=== PATIENT | male | born 1940 | race Caucasian/White ===

== ENCOUNTER → 2017-05-22 | Outpatient (CLI) | payer OTHER | LOC: FIMAGING 09:52 | DX: M48.061 Spinal stenosis, lumbar region without neurogenic claudication (principal); M99.73 Connective tissue and disc stenosis of intervertebral foramina of lumbar region ==

== ENCOUNTER 2017-12-16 05:22 | Observation (INO) | payer OTHER ==
[2017-12-16] MEDS ORDERED: GABAPENTIN 300 MG CAP PO ONE (05:53)
[2017-12-16] MEDS ORDERED: ACETAMINOPHEN 500 MG TAB PO ONE (05:53)
[2017-12-16] MEDS ORDERED: ceFAZolin 2 GM/DEXTROSE 100 ML IV ONE (05:53)
[2017-12-16] MEDS ORDERED: LR 1,000 ML IV ONE (05:56)
[2017-12-16] MEDS ORDERED: CHLORHEXIDINE GLUC HIBICLENS 118 ML BTL TP ONE (06:37)
[2017-12-16] MEDS ORDERED: THROMBIN (BOVINE) 20,000 UNIT VIAL TP ONE (06:37)
[2017-12-16] MEDS ORDERED: BACITRACIN ZINC 14.2 GM OINTTUBE TP ONE (06:37)
[2017-12-16] MEDS ORDERED: AVITENE POWDER 1 GM JAR TP ONE (06:38)
[2017-12-16] MEDS ORDERED: BACITRACIN 50,000 UNITS/10 ML SYR IRR ONE ×2 (06:38→08:55)
[2017-12-16] MEDS ORDERED: BUPIVACAINE 0.25% 30 ML SDV ONE (06:38)
[2017-12-16] MEDS ORDERED: EPINEPHrine 1 MG/ML INJ ONE (06:38)
--- NOTE | 2017-12-16 06:40 | PDHPUP ---
History & Physical Update H&P update statement: This history and physical update is based on an assessment of the patient which was completed after admission or registration (within 24 hours), but prior to the surgery/procedure. H&P update: H&P reviewed & patient examined, no change in patient's condition since H&P completed (Consents signed and site marked. All questions answered.)
--- NOTE | 2017-12-16 07:05 | PDANEPAE ---
ANE Past Medical History - Cardiovascular History Hx Hypertension: Yes Hx Arrhythmias: No Hx Chest Pain: No Hx Coronary Artery / Peripheral Vascular Disease: No Hx CHF / Valvular Disease: No Hx Palpitations: No Cardiovascular History Comment: hyperlipidemia - Pulmonary History Hx COPD: No Hx Asthma/Reactive Airway Disease: No Hx Recent Upper Respiratory Infection: No Hx Oxygen in Use at Home: No Hx Sleep Apnea: No Sleep Apnea Screening Result - Last Documented: Positive Pulmonary History Comment: dayami triggers - Neurologic History Hx Cerebrovascular Accident: No Hx Seizures: No Hx Dementia: No Neurologic History Comment: spinal stenosis. occ n/t in legs and feet - Endocrine History Hx Diabetes: Yes Obesity: mild Endocrine History Comment: type 2 - Renal History Hx Renal Disorders: Yes Renal History Comment: bph. ed - Liver History Hx Hepatic Disorders: No - Neurological & Psychiatric Hx Hx Neurological and Psychiatric Disorders: No - Cancer History Hx Cancer: Yes Cancer History Comment: colon ca. skin ca - Congenital Disorder History Hx Congenital Disorders: No - GI History Hx Gastrointestinal Disorders: Yes Gastrointestinal History Comment: hx of colon ca with resection. occ reflux - Other Health History Other Health History: wears glasses - Chronic Pain History Chronic Pain: Yes (lower back) - Surgical History Prior Surgeries: colon resection 2002. steroid injections 08/2015 and 03/2016 ANE Review of Systems Review of Systems: - Exercise capacity METS (RN): 4 METS ANE Patient History - Allergies Allergies/Adverse Reactions: adhesive Allergy (Verified 12/16/17 06:10) latex Allergy (Verified 12/06/17 10:48) causes rash - Home Medications Home medications: home medication list seen and reviewed Home Medications: Insulin Detemir [Levemir] 20 unit SQ HS 03/12/13 [Last Taken 12/15/17 22:30] glipiZIDE XL [Glucotrol XL 10 MG (*)] 10 mg PO DAILY@12 03/12/13 [Last Taken 09:00] Acetaminophen [Tylenol ES 500 mg (*)] 500 mg PO HS 12/02/17 [Last Taken 12/15/17 ] Atorvastatin Calcium [Lipitor 10 mg (*)] 10 mg PO DAILY18 12/02/17 [Last Taken 12/15/17 17:00] Insulin Aspart [novoLOG] 10 - 15 unit SC TIDMEAL 12/02/17 [Last Taken 12/15/17 17:00] Lisinopril [Zestril 20 mg (*)] 20 mg PO DAILY 12/02/17 [Last Taken 12/15/17 09: 00] - NPO status NPO Status: no food or drink >8 hours NPO Since - Liquids (Date): 12/15/17 NPO Since - Liquids (Time): 19:00 NPO Since - Solids (Date): 12/15/17 NPO Since - Solids (Time): 17:00 - Anes Hx Anes Hx: no prior problems - Smoking Hx Smoking Status: Former smoker - Family Anes Hx Family Hx Anesthesia Complications: none ANE Labs/Vital Signs - Vital Signs Blood Pressure: 118/69 Heart Rate: 49 Respiratory Rate: 16 O2 Sat (%): 94 Height: 180.4 cm Weight: 95.9 kg ANE Physical Exam - Airway Neck exam: FROM Mallampati Score: Class 2 Mouth exam: normal dental/mouth exam - Pulmonary Pulmonary: no respiratory distress, no rales or rhonchi, clear to auscultation - Cardiovascular Cardiovascular: regular rate and rhythym, no murmur, rub, or gallop - ASA Status ASA Status: II ANE Anesthesia Plan Anesthesia Plan: general endotracheal anesthesia
[2017-12-16] MEDS ORDERED: PROPOFOL 200 MG/20 ML VIAL ONE (07:13)
[2017-12-16] MEDS ORDERED: ONDANSETRON 4 MG/2 ML VIAL ONE (07:17)
[2017-12-16] MEDS ORDERED: LIDOCAINE 2% 5 ML SDV ONE (07:17)
[2017-12-16] MEDS ORDERED: SUCCINYLCHOLINE CHLORIDE 200 MG/10 ML SYR IVP ONE (07:17)
[2017-12-16] MEDS ORDERED: ROCURONIUM 50 MG/5 ML VIAL ONE (07:40)
[2017-12-16] MEDS ORDERED: ePHEDrine SULFATE 25 MG/5 ML SYR ONE (08:28)
[2017-12-16] MEDS ORDERED: DIAZEPAM 5 MG/ML 1 ML SYR IVP PRN (09:19)
[2017-12-16] MEDS ORDERED: PROMETHAZINE HCL 25 MG/ML INJ IVP PRN (09:19)
[2017-12-16] MEDS ORDERED: ACETAMINOPHEN 500 MG TAB PO PRN (09:19)
[2017-12-16] MEDS ORDERED: NALOXONE HCL 0.4 MG/ML INJ IVP PRN ×2 (09:19→09:21)
[2017-12-16] MEDS ORDERED: ENALAPRILAT DIHYDRATE 1.25 MG/ML VIAL IVP PRN (09:19)
[2017-12-16] MEDS ORDERED: ONDANSETRON 4 MG/2 ML VIAL IVP PRN ×2 (09:19→09:45)
[2017-12-16] MEDS ORDERED: HYDROCODONE/APAP 5/325 TAB PO PRN (09:19)
[2017-12-16] MEDS ORDERED: oxyCODONE IR 5 MG TAB PO PRN ×2 (09:19→09:45)
[2017-12-16] MEDS ORDERED: LR 500 ML IV PRN (09:19)
[2017-12-16] MEDS ORDERED: ONDANSETRON DISINTEGRATING 4 MG TAB PO PRN (09:45)
[2017-12-16] MEDS ORDERED: MAGNESIUM HYDROXIDE 30 ML UDCUP PO PRN (09:45)
[2017-12-16] MEDS ORDERED: diphenhydrAMINE 25 MG CAP PO PRN (09:45)
[2017-12-16] MEDS ORDERED: NS 1,000 ML IV SCH (09:45)
[2017-12-16] MEDS ORDERED: LACTULOSE 20 GM/30 ML UDCUP PO PRN (09:45)
[2017-12-16] MEDS ORDERED: BISACODYL 10 MG SUPP PR PRN (09:45)
[2017-12-16] MEDS ORDERED: POLYETHYLENE GLYCOL 3350 17 GM PKT PO PRN (09:45)
[2017-12-16] MEDS ORDERED: HYDROmorphONE/DILAUDID 1 MG/ML INJ IVP PRN (09:45)
[2017-12-16] MEDS ORDERED: METHOCARBAMOL 750 MG TAB PO PRN (09:45)
[2017-12-16] MEDS ORDERED: D50W 25 GM/50 ML SYR IVP PRN (09:50)
--- NOTE | 2017-12-16 09:52 | POSTOPPROG ---
Post Op Note Date of Operation: 12/16/17 Surgeon: Denia Marc Head Athletic Trainer/Strength Coach: Fabien Marc PA-C Anesthesiologist: Sydney Anesthesia: GET(General Endotracheal) Pre-op Diagnosis: lumbar stenosis Post-op Diagnosis: same Indication: pain, weakness Procedure: L3-5 laminectomy and discectomy Findings: nerve compression Inf/Abcess present in the surg proc area at time of surgery?: No Depth: Organ Space EBL: 50-100 Complications: none Drains: Leighton Nuñez Specimen(s): none PA Addendum - Addendum .: S: Pt awake in PACU, c/o phlegm in throat and mild back pain O: AAOx3 NAD VSS MAEx4 Motor 5/5 BUE & BLE +LT Incision dressed cdi JPx1 A: 77 yo M s/p L3-5 laminectomy and discectomy P: Pain management PT/OT Cont home insulin, add low dose sliding scale Spine precautions TEDs, SCDs, lovenox POD#1 Admit overnight for obs D/w Dr Bynum Call NS with any issues
[2017-12-16] MEDS ORDERED: fentaNYL 100 MCG/2 ML INJ ONE (09:56)
[2017-12-16] MEDS: fentaNYL 100 MCG/2 ML INJ IVP PRN ×3 (09:57→10:16)
[2017-12-16] MEDS ORDERED: HYDROmorphONE/DILAUDID 1 MG/ML INJ ONE (10:36)
[2017-12-16] MEDS ORDERED: INSULIN REGULAR HUMAN 100 UNIT/ML UNIT SC SCH (11:30)
[2017-12-16] MEDS ORDERED: INSULIN LISPRO 100 UNIT/ML SC SCH (12:00)
--- NOTE | 2017-12-16 12:18 | GOP ---
[f rep st] OPERATIVE REPORT DATE OF OPERATION: 12/16/2017 SURGEON: Андрей Bynum MD MILLER HELPER: Denia Marc, CHRYSTAL. ANESTHESIA: General. PREOPERATIVE DIAGNOSIS: 1. L3-L4 and L4-L5 severe spinal stenosis with disk herniation/bulge L4-L5. 2. Lower extremity claudication with low back pain. 3. Treatment refractory to nonoperative intervention. POSTOPERATIVE DIAGNOSIS: 1. L3-L4 and L4-L5 severe spinal stenosis with disk herniation/bulge L4-L5. 2. Lower extremity claudication with low back pain. 3. Treatment refractory to nonoperative intervention. PROCEDURE PERFORMED: 1. Decompressive laminectomy with bilateral medial facetectomies and foraminotomies at L3-L4 and L4-L5. 2. Left-sided L4-L5 diskectomy. 3. Use of intraoperative fluoroscopy, less than 1 hour physician time. 4. Use of neuromonitoring. 5. Use of operative microscope. FINDINGS: per imaging SPECIMENS: None. ESTIMATED BLOOD LOSS: 100 mL. INDICATIONS: The patient is a 77-year-old gentleman who has been suffering from lower extremity claudication and radiculopathy. He also has some low back pain. He had evidence of severe spinal stenosis at L3-L4 and L4-L5. After discussion of the risks, benefits, and alternatives and after failing nonoperative intervention, we decided to proceed forth with surgery as described above. DESCRIPTION OF PROCEDURE: The patient was brought to the operating theater and underwent general endotracheal anesthesia without complications. He had Venodynes, RONNELL hose, and the appropriate lines placed by Anesthesia. He was flipped prone onto the Adrian frame and all bony prominences inspected and padded. The lower lumbar region was prepped and draped in the usual sterile surgical fashion. A time-out was completed per protocol and the patient received antibiotics within 1 hour of incision. Using lateral fluoroscopy and a spinal needle, we picked our entry point to the L3 through L5 levels. This was marked in the midline. The incision was infiltrated with Marcaine with epinephrine. The incision was taken down with a scalpel blade, and then using monopolar, taken down the midline through the lumbodorsal fascia and subperiosteal dissection carried out to the medial facet joints of L3-L4 and L4-L5. Deep retractors were placed to maintain our exposure. We confirmed our level using lateral fluoroscopy. Using a combination of the bur tip on the drill bit, Kerrison punches, and a Leksell rongeur, we completed decompressive laminectomy with bilateral medial facetectomies, L3-L4 and L4-L5. We then retracted the thecal sac medially on the left side at L4-L5 disk and completed partial diskectomy with micro pituitaries. Once we felt that everything was well decompressed, we reached out into the foramina and ensured that they were all well decompressed to manual palpation. We obtained hemostasis with bipolar and the wound irrigated copiously with bacitracin irrigation. We closed the wound in multiple layers using Vicryl sutures for the deep layers and Dermabond for the skin. The patient's wounds were dressed sterilely. He was flipped supine onto the transfer cart. He was awakened, extubated, and taken to the recovery room in stable condition. There were no complications and an improvement noted on neuromonitoring by the end of the procedure. COMPLICATIONS: None. /[id number]/MODL MTDD
--- NOTE | 2017-12-16 13:39 | POSTANESTH ---
Post Anesthetic Evaluation Cardiovascular Status: Similar to Pre-Op Cond Respiratory Status: Normal, Stable, Similar to Pre-op Cond. Level of Consciousness/Mental Status: Can Participate in Eval, Mildly Sleepy, Arousable Pain Control: Adequate, Prn Tx Ordered Nausea/Vomiting Control: Adequate, Prn Tx Ordered Complications Possibly Related to Anesthesia: None Noted
[2017-12-16] MEDS: glipiZIDE XL 5 MG TAB PO SCH (13:53)
[2017-12-16] MEDS: NOVOLOG SC SCH ×2 (13:55→17:41)
[2017-12-16] MEDS: ACETAMINOPHEN 500 MG TAB PO SCH ×2 (14:54→21:34)
[2017-12-16] MEDS ORDERED: ATORVASTATIN CALCIUM 10 MG TAB PO SCH (18:00)
[2017-12-16] MEDS ORDERED: INSULIN GLARGINE 100 UNITS/ML UNIT SC SCH (21:00)
[2017-12-16] MEDS: FAMOTIDINE 20 MG TAB PO SCH (21:34)
[2017-12-16] MEDS: SENNOSIDES/DOCUSATE SODIUM TAB PO SCH (21:34)
[2017-12-17] MEDS: ACETAMINOPHEN 500 MG TAB PO SCH (06:11)
[2017-12-17] MEDS: glipiZIDE XL 5 MG TAB PO SCH (06:55)
[2017-12-17 07:53] VITALS: BP 125/69
[2017-12-17] MEDS: FAMOTIDINE 20 MG TAB PO SCH (08:03)
[2017-12-17] MEDS: SENNOSIDES/DOCUSATE SODIUM TAB PO SCH (08:03)
[2017-12-17] MEDS: NOVOLOG SC SCH (08:04)
[2017-12-17] MEDS ORDERED: ENOXAPARIN 40 MG/0.4 ML SYR SC SCH (09:00)
[2017-12-17] MEDS ORDERED: LISINOPRIL 20 MG TAB PO SCH (09:00)
--- NOTE | 2017-12-17 09:24 | NEUSURGPN ---
Assessment/Plan: A: 77 yo M s/p L3-5 laminectomy and discectomy POD#1 P: Pain management PT/OT - patient is refusing therapies. Cont home insulin, resume metformin 24 hours post op. Spine precautions TEDs, SCDs, lovenox POD#1 SUKHDEEP drain x 1 - remove today and change dressing Admit overnight for obs - DC to home today D/w Dr Bynum Call NS with any issues Subjective: Pt resting in bedside chair, c/o low back discomfort, moving well overall. Objective: AAOx3 NAD VSS MAEx4 Motor 5/5 BLE Incision dressed cdi JPx1 - serosanguineous dc in bulb Urinary Catheter in Place: No - Physician Discussed Patient with : [facility] Physical Exam - Vitals, I&O, Labs I and O 12/16/17 12/17/17 12/18/17 05:59 05:59 05:59 Intake Total 2150 Output Total 335 20 Balance 1815 -20 Weight 95.9 kg Intake: Oral (ml) 1150 IV Intake (ml) 1000 Output: Estimated Blood Loss (ml) 75 SUKHDEEP Drain Output (ml) 260 20 #1 Posterior Back Leighton 260 20 Nuñez Other: Intake Quantity Yes Sufficient Number of Voids Toilet 1 Vital Signs Temp Pulse Resp BP Pulse Ox 36.9 C 70 16 125/69 H 93 12/17/17 07:51 12/17/17 07:51 12/17/17 07:51 12/17/17 08:03 12/17/17 07:51 ICD10 Worksheet Patient Problems: Problems Problem Status Onset Lumbar stenosis Acute - ICD10 Problem Qualifiers (1) Lumbar stenosis Qualifiers: Neurogenic claudication status: unspecified Qualified Code(s): M48.061 - Spinal stenosis, lumbar region without neurogenic claudication
--- NOTE | 2017-12-17 17:11 | ASMTLACE ---
LACE Length of stay for Answers: 2 days current admission Acuity / Level of Answers: No Care: Did the patient have an inpatient admission? Comorbidities - select Answers: Any tumor (including all that apply lymphoma or leukemia) Diabetes (uncontrolled or controlled) Opioid dependence / Chronic pain Other Notes: HTN; HLD # of Emergency department Answers: 0 visits in the last 6 months Score: 10 Date Signed: 12/17/2017 05:10 PM Electronically Signed By:MAHAD Rothman
--- NOTE | 2017-12-17 17:12 | ASMTCMCOM ---
CM Note CM Note Notes: Pt declined therapy evals. Pt medically stable for d/c, no CM d/c needs identified. Date Signed: 12/17/2017 05:11 PM Electronically Signed By:MAHAD Rothman
--- NOTE | 2017-12-28 14:05 | GDS ---
[f rep st] DISCHARGE SUMMARY ADMITTING DIAGNOSIS: Lumbar stenosis and weakness. DISCHARGE DIAGNOSIS: Status post L3-L5 laminectomy and diskectomy. CONSULTS: Case Management. Physical Therapy and Occupational Therapy were also consulted for this p atient, but the patient refused therapy services. DISPOSITION: To home. HOSPITAL COURSE: The patient is a 77-year-old male patient who was seen in Dr. Bynum's clinic as an outpatient. He was found to have severe spinal stenosis at L3-4 and L4-5. He had been suffering fr om lower extremity claudication symptoms and radiculopathy. He tried and failed conservative managem ent and after careful consideration, elected to proceed with surgical intervention in the way of an L 3-L5 decompressive laminectomy and diskectomy. The procedure was performed by Dr. Андрей Bynum for which there were no known complications. Please see his operative report for further details. After the operation, the patient was in stable condition and was transferred the operating room to the PAC U and from the PACU to the postsurgical floor. While on the floor, patient received pain management and DVT prophylaxis. His lumbar wound drain was removed. He tolerated well and was ready for discha rge on postoperative day #1, December 17, 2017. Physical Therapy and Occupational Therapy were consulted for this patient, but the patient refused their services during his hospital admission. DISCHARGE INSTRUCTIONS: DIET: As tolerated. ACTIVITY: No bending, lifting, or twisting. Patient to keep his incision clean and dry. MEDICATIONS: Please see the medication reconciliation. FOLLOWUP: The patient has been asked to follow up in the office in approximately 2-3 weeks. We have asked the patient to call sooner with any additional questions or concerns at [phone]. /[id number]/MODL
== END 2017-12-17 10:57 | disposition home or self-care (01) ==
LOC: F3N 05:22
PROVIDERS: ADMIT Neurological Surgery; ATTEND Neurological Surgery
PROC: 00NY0ZZ Release Lumbar Spinal Cord, Open Approach (ICD-10-PCS; principal; 2017-12-16 07:15)
PROC: 0SB00ZZ Excision of Lumbar Vertebral Joint, Open Approach (ICD-10-PCS; principal; 2017-12-16 07:15)
DX: M48.062 Spinal stenosis, lumbar region with neurogenic claudication (principal)
CPT/HCPCS: 63047; 76001; G0378; J0171; J0330; J0690; J1170; J1650; J1815; J2270; J2405; J2704; J3010